=== PATIENT | male | born 1960 | race Caucasian/White ===

== ENCOUNTER 2016-09-28 17:39 | Emergency (ER) | payer BC ==
--- NOTE | 2016-09-28 18:21 | EDM.PDOC ---
ED HPI GENERAL MEDICAL PROBLEM - General Chief Complaint: ENT Problem Stated Complaint: RT EYE ISSUE Time Seen by Provider: 09/28/16 17:54 Source of Information: Reports: Patient History Limitations: Reports: No Limitations - History of Present Illness INITIAL COMMENTS - FREE TEXT/NARRATIVE: The patient was out week waking and he came in the house and had redness to the right eye and burning. He has no vision changes but he noticed some edema of the sclera that was concerning. He does wear glasses but no contacts. Onset: Gradual Duration: Hour(s): Location: Reports: Other (right eye) Quality: Reports: Other (Burning) Severity: Moderate Improves with: Reports: None Worsens with: Reports: None Associated Symptoms: Reports: No Other Symptoms Right Eye Pain Score (Numeric/FACES): 3 - Related Data Allergies Allergy/AdvReac Type Severity Reaction Status Date / Time Penicillins Allergy Other Verified 09/28/16 17:53 Home Meds: Home Meds . [Unable to Verify Home Med List] 09/28/16 [History] Past Medical History Cardiovascular History: Reports: Hypertension Social & Family History - Tobacco Use Smoking Status *Q: Current Every Day Smoker Years of Tobacco use: 25 Packs/Tins Daily: 0.7 - Caffeine Use Caffeine Use: Reports: None - Recreational Drug Use Recreational Drug Use: No ED ROS ENT - Review of Systems Review Of Systems: See Below Constitutional: Reports: No Symptoms HEENT: Reports: Eye Pain Respiratory: Reports: No Symptoms Cardiovascular: Reports: No Symptoms Endocrine: Reports: No Symptoms GI/Abdominal: Reports: No Symptoms : Reports: No Symptoms Musculoskeletal: Reports: No Symptoms ED EXAM, ENT - Physical Exam Exam: See Below Exam Limited By: No Limitations General Appearance: Alert, No Apparent Distress Eye Exam: Right Eye: Conjunctival Injection, Corneal Abrasion, Bilateral Eye: EOMI Ears: Normal External Exam Nose: Normal Inspection Course - Vital Signs Last Recorded V/S: Last Vital Signs Temp 98.7 F 09/28/16 17:51 Pulse 80 09/28/16 17:51 Resp 18 09/28/16 17:51 BP Pulse Ox 96 09/28/16 17:51 - Re-Assessments/Exams Free Text/Narrative Re-Assessment/Exam: 09/28/16 18:19 He has a corneal abrasion. He has some antibiotic drops at home he will be using. Departure - Departure Time of Disposition: 18:20 Disposition: Home, Self-Care 01 Condition: good Clinical Impression: Conjunctival edema of right eye Corneal abrasion, right Qualifiers: Encounter type: initial encounter Qualified Code(s): S05.01XA - Injury of conjunctiva and corneal abrasion without foreign body, right eye, initial encounter - Discharge Information Forms: ED Department Discharge Additional Instructions: Take the antibiotic drops as prescribed by your eye doctor. Follow up with him if you are not better in a few days.
== END 2016-09-28 18:25 | disposition home or self-care (01) ==
LOC: JD.ED 17:39
DX: S05.01XA Injury of conjunctiva and corneal abrasion without foreign body, right eye, initial encounter (principal); H11.421 Conjunctival edema, right eye; I10 Essential (primary) hypertension; F17.210 Nicotine dependence, cigarettes, uncomplicated; Z88.0 Allergy status to penicillin; X58.XXXA Exposure to other specified factors, initial encounter
CPT/HCPCS: 99282; 99283

== ENCOUNTER 2020-03-30 23:31 | Emergency (ER) | payer BC ==
[2020-03-30 23:44] VITALS: PULSE 70
[2020-03-30] MEDS ORDERED: Lactated Ringers 1,000 ML IV SCH (23:45)
--- NOTE | 2020-03-30 23:52 | EDM.PDOC ---
ED HPI GENERAL MEDICAL PROBLEM - General Chief Complaint: Chest Pain Stated Complaint: CHEST PAIN Time Seen by Provider: 03/30/20 23:42 - History of Present Illness INITIAL COMMENTS - FREE TEXT/NARRATIVE: 59-year-old male presents the emergency room with chest pain. Approximately 2 hours prior to arrival the patient developed pretty significant chest discomfort this was substernal in the lower chest and at times into the middle chest. Prior to this the patient was not having any symptoms. The patient does not have any history of coronary artery disease. No family history of coronary artery disease. His mother of cancer he has an older sister with no heart disease his father still living. Patient's risk factors include smoking he smokes about a pack a day. The patient has had episodes similar to this in the past he had a normal stress test about 5 years ago. This chest pain has not been associated with breathing difficulties or nausea and vomiting. The patient does not take baby aspirin daily. Chest Pain Score (Numeric/FACES): 10 - Related Data Allergies Allergy/AdvReac Type Severity Reaction Status Date / Time Penicillins Allergy Other Verified 03/30/20 23:44 Home Meds: Home Meds Hydrocodone/Acetaminophen [Hydrocodone-Acetamin 5-325 mg] 1 - 2 each PO Q6H PRN #20 tablet 03/31/20 [Rx] Omeprazole 40 mg PO DAILY #30 capsule. 03/31/20 [Rx] Sucralfate [Carafate] 1 gm PO ASDIRECTED #28 ml 03/31/20 [Rx] Past Medical History Cardiovascular History: Reports: Hypertension Social & Family History - Caffeine Use Caffeine Use: Reports: None ED ROS GENERAL - Review of Systems Review Of Systems: See Below Constitutional: Reports: No Symptoms HEENT: Reports: No Symptoms Respiratory: Reports: No Symptoms Cardiovascular: Reports: Chest Pain. Denies: Blood Pressure Problem, Claudication, Dyspnea on Exertion, Edema Endocrine: Reports: No Symptoms GI/Abdominal: Reports: Abdominal Pain (Upper abdominal). Denies: Black Stool, Bloody Stool, Constipation, Diarrhea : Reports: No Symptoms Musculoskeletal: Reports: No Symptoms Skin: Reports: No Symptoms Neurological: Reports: No Symptoms Psychiatric: Reports: No Symptoms Hematologic/Lymphatic: Reports: No Symptoms ED EXAM, GENERAL - Physical Exam Exam: See Below Exam Limited By: No Limitations General Appearance: Alert, Moderate Distress (From the discomfort) Head: Atraumatic, Normocephalic Neck: Normal Inspection Respiratory/Chest: No Respiratory Distress, Lungs Clear, Normal Breath Sounds Cardiovascular: Regular Rate, Rhythm, No Edema, No Murmur GI/Abdominal: Normal Bowel Sounds, Soft, Other (Patient has marked epigastric discomfort with palpation especially in the area just below the xiphoid. Less so in the left upper quadrant no right upper quadrant pain he has no rigidity rebound or guarding noted) Extremities: Normal Inspection, No Pedal Edema Neurological: Alert, Oriented, Normal Cognition Psychiatric: Anxious Skin Exam: Warm, Dry, Intact #1 Interpretation EKG Date: 03/30/20 Rhythm: NSR Rate (Beats/Min): 73 [place]: Normal P-Wave: Present QRS: Other (QRS with borderline early transition) ST-T: Normal QT: Normal Comparison: No Change (No significant change other than some lead placement variation in the precordial leads comparing to rest images of the stress test done in 2014) EKG Interpretation Comments: Possible left atrial enlargement otherwise unremarkable Course - Vital Signs Last Recorded V/S: Last Vital Signs Temp 36.4 C 03/30/20 23:41 Pulse 70 03/30/20 23:41 Resp 20 03/30/20 23:41 BP 149/98 H 03/31/20 00:16 Pulse Ox 96 03/30/20 23:41 - Orders/Labs/Meds Orders: Active Orders 24 hr Category Date Time Status EKG Documentation Completion [RC] ASDIRECTED Care 03/31/20 02:53 Active EKG Documentation Completion [RC] STAT Care 03/31/20 00:32 Active Chest 1V Frontal [CR] Stat Exams 03/30/20 23:53 Taken Chest PE [Ang Chest] [CT] Stat Exams 03/31/20 00:51 Taken Lactated Ringers [Ringers, Lactated] 1,000 ml Med 03/30/20 23:45 Active IV ASDIRECTED EKG 12 Lead [EK] Stat Ther 03/31/20 02:53 Ordered Medication Orders Lactated Ringer's (Ringers, Lactated) 1,000 mls @ 50 mls/hr IV ASDIRECTED SHILPI Last Admin: 03/31/20 00:03 Dose: 50 mls/hr Documented by: ANTOINETTE Labs: Laboratory Tests 03/30/20 03/30/20 03/30/20 Range/Units 23:40 23:40 23:40 WBC 14.21 H (4.23-9.07) K/mm3 RBC 5.69 (4.63-6.08) M/mm3 Hgb 17.4 (13.7-17.5) gm/dl Hct 50.7 (40.1-51.0) % MCV 89.1 (79.0-92.2) fl MCH 30.6 (25.7-32.2) pg MCHC 34.3 (32.2-35.5) g/dl RDW Std Deviation 44.0 H (35.1-43.9) fL Plt Count 285 (163-337) K/mm3 MPV 10.8 (9.4-12.3) fl Neut % (Auto) 73.1 H (34.0-67.9) % Lymph % (Auto) 17.9 L (21.8-53.1) % [place] % (Auto) 6.4 (5.3-12.2) % Eos % (Auto) 2.2 (0.8-7.0) Baso % (Auto) 0.1 (0.1-1.2) % Neut # (Auto) 10.11 H (1.78-5.38) K/mm3 Lymph # (Auto) 2.48 (1.32-3.57) K/mm3 [place] # (Auto) 0.89 H (0.30-0.82) K/mm3 Eos # (Auto) 0.31 (0.04-0.54) K/mm3 Baso # (Auto) 0.02 (0.01-0.08) K/mm3 Neutrophils % (Manual) Cancelled Band Neutrophils % Cancelled Lymphocytes % (Manual) Cancelled Atypical Lymphs % Cancelled Immat Monocytes % (Man) Cancelled Monocytes % (Manual) Cancelled Eosinophils % (Manual) Cancelled Basophils % (Manual) Cancelled Metamyelocytes % Cancelled Myelocytes % Cancelled Promyelocytes % Cancelled Blast Cells % Cancelled Plasma Cell % (Manual) Cancelled Immature Gran # Cancelled Absolute Neutrophils Cancelled Absolute Seg Neuts Cancelled Band Neutrophils # Cancelled Lymphocytes # (Manual) Cancelled Monocytes # (Manual) Cancelled Eosinophils # (Manual) Cancelled Basophils # (Manual) Cancelled Absolute Metamyelocyte Cancelled Absolute Myelocytes Cancelled Absolute Promyelocytes Cancelled Absolute Plasma Cells Cancelled Nucleated RBCs Cancelled Differential Comment Cancelled Manual Slide Review Normal smear Hypersegmented Neuts Cancelled Atypical Lymphocytes Cancelled Vacuolated Monocytes Cancelled Absolute Blast Cells Cancelled Toxic Granulation Cancelled Dohle Bodies Cancelled Pelger-Huet Cells Cancelled Megakaryocytic Frags Cancelled Neto Rods Cancelled WBC Morphology Comment Cancelled Platelet Estimate Cancelled Clumped Platelets Cancelled Giant Platelets Cancelled Plt Morphology Comment Cancelled Polychromasia Cancelled Hypochromasia Cancelled Poikilocytosis Cancelled Basophilic Stippling Cancelled Anisocytosis Cancelled Microcytosis Cancelled Macrocytosis Cancelled Spherocytes Cancelled Pappenheimer Bodies Cancelled Sickle Cells Cancelled Target Cells Cancelled Tear Drop Cells Cancelled Ovalocytes Cancelled Stomatocytes Cancelled Helmet Cells Cancelled [place] Bodies Cancelled Edna Rings Cancelled [place] Cells Cancelled Elliptocytes Cancelled Acanthocytes (Spur) Cancelled Rouleaux Cancelled Hemoglobin C Crystals Cancelled Schistocytes Cancelled RBC Morph Comment Cancelled Smear Path Review Cancelled Roberto Bodies Cancelled PT 10.3 (9.7-12.0) SECONDS INR 0.96 APTT 25.8 (21.7-31.4) SECONDS D-Dimer, Quantitative (0.19-0.50) mg/L Sodium 140 (136-145) mEq/L Potassium 3.9 (3.5-5.1) mEq/L Chloride 104 (98-107) mEq/L Carbon Dioxide 29 (21-32) mEq/L Anion Gap 10.9 (5-15) BUN 20 H (7-18) mg/dL Creatinine 1.1 (0.7-1.3) mg/dL Est Cr Clr Drug Dosing 80.34 mL/min Estimated GFR (MDRD) > 60 (>60) mL/min BUN/Creatinine Ratio 18.2 H (14-18) Glucose 111 H (74-106) mg/dL Calcium 9.4 (8.5-10.1) mg/dL Total Bilirubin 1.3 H (0.2-1.0) mg/dL AST 17 (15-37) U/L ALT 54 (16-63) U/L Alkaline Phosphatase 80 (46-116) U/L Troponin I < 0.017 (0.00-0.056) ng/mL Total Protein 7.4 (6.4-8.2) g/dl Albumin 3.9 (3.4-5.0) g/dl Globulin 3.5 gm/dL Albumin/Globulin Ratio 1.1 (1-2) SARS-CoV-2 RNA (MYLENE) (NEGATIVE) Slides for Path Review Cancelled 03/31/20 03/31/20 03/31/20 Range/Units 00:36 00:55 03:05 WBC (4.23-9.07) K/mm3 RBC (4.63-6.08) M/mm3 Hgb (13.7-17.5) gm/dl Hct (40.1-51.0) % MCV (79.0-92.2) fl MCH (25.7-32.2) pg MCHC (32.2-35.5) g/dl RDW Std Deviation (35.1-43.9) fL Plt Count (163-337) K/mm3 MPV (9.4-12.3) fl Neut % (Auto) (34.0-67.9) % Lymph % (Auto) (21.8-53.1) % [place] % (Auto) (5.3-12.2) % Eos % (Auto) (0.8-7.0) Baso % (Auto) (0.1-1.2) % Neut # (Auto) (1.78-5.38) K/mm3 Lymph # (Auto) (1.32-3.57) K/mm3 [place] # (Auto) (0.30-0.82) K/mm3 Eos # (Auto) (0.04-0.54) K/mm3 Baso # (Auto) (0.01-0.08) K/mm3 Neutrophils % (Manual) Band Neutrophils % Lymphocytes % (Manual) Atypical Lymphs % Immat Monocytes % (Man) Monocytes % (Manual) Eosinophils % (Manual) Basophils % (Manual) Metamyelocytes % Myelocytes % Promyelocytes % Blast Cells % Plasma Cell % (Manual) Immature Gran # Absolute Neutrophils Absolute Seg Neuts Band Neutrophils # Lymphocytes # (Manual) Monocytes # (Manual) Eosinophils # (Manual) Basophils # (Manual) Absolute Metamyelocyte Absolute Myelocytes Absolute Promyelocytes Absolute Plasma Cells Nucleated RBCs Differential Comment Manual Slide Review Hypersegmented Neuts Atypical Lymphocytes Vacuolated Monocytes Absolute Blast Cells Toxic Granulation Dohle Bodies Pelger-Huet Cells Megakaryocytic Frags Neto Rods WBC Morphology Comment Platelet Estimate Clumped Platelets Giant Platelets Plt Morphology Comment Polychromasia Hypochromasia Poikilocytosis Basophilic Stippling Anisocytosis Microcytosis Macrocytosis Spherocytes Pappenheimer Bodies Sickle Cells Target Cells Tear Drop Cells Ovalocytes Stomatocytes Helmet Cells Ybar[place] Bodies Edna Rings [place] Cells Elliptocytes Acanthocytes (Spur) Rouleaux Hemoglobin C Crystals Schistocytes RBC Morph Comment Smear Path Review Roberto Bodies PT (9.7-12.0) SECONDS INR APTT (21.7-31.4) SECONDS D-Dimer, Quantitative 0.95 H (0.19-0.50) mg/L Sodium (136-145) mEq/L Potassium (3.5-5.1) mEq/L Chloride (98-107) mEq/L Carbon Dioxide (21-32) mEq/L Anion Gap (5-15) BUN (7-18) mg/dL Creatinine (0.7-1.3) mg/dL Est Cr Clr Drug Dosing mL/min Estimated GFR (MDRD) (>60) mL/min BUN/Creatinine Ratio (14-18) Glucose (74-106) mg/dL Calcium (8.5-10.1) mg/dL Total Bilirubin (0.2-1.0) mg/dL AST (15-37) U/L ALT (16-63) U/L Alkaline Phosphatase (46-116) U/L Troponin I < 0.017 (0.00-0.056) ng/mL Total Protein (6.4-8.2) g/dl Albumin (3.4-5.0) g/dl Globulin gm/dL Albumin/Globulin Ratio (1-2) SARS-CoV-2 RNA (MYLENE) Negative (NEGATIVE) Slides for Path Review Meds: Medications Generic Name Dose Route Start Last Admin Trade Name Freq PRN Reason Stop Dose Admin Lactated Ringer's 1,000 mls @ 50 mls/hr 03/30/20 23:45 03/31/20 00:03 Ringers, Lactated IV 50 mls/hr ASDIRECTED SHILPI Administration Discontinued Medications Generic Name Dose Route Start Last Admin Trade Name Freq PRN Reason Stop Dose Admin Hydrocodone Bitart/Acetaminophen 1 tab 03/31/20 03:53 [place] 325-5 Mg PO 03/31/20 03:54 ONETIME ONE Aspirin 324 mg 03/30/20 23:54 03/31/20 00:02 Aspirin PO 03/30/20 23:55 324 mg ONETIME ONE Administration Al Hydroxide/Mg Hydroxide 30 0 ml 03/31/20 00:46 03/31/20 01:06 ml/ Lidocaine HCl 15 ml PO 03/31/20 00:47 45 ml ONETIME ONE Administration Morphine Sulfate 2 mg 03/31/20 00:17 03/31/20 02:25 Morphine IVPUSH 03/31/20 00:18 Not Given ONETIME ONE Nitroglycerin 0.4 mg 03/30/20 23:54 03/31/20 00:16 Nitrostat SL 0.4 mg Q5M PRN Administration Chest Pain Nitroglycerin 1 gm 03/31/20 00:31 03/31/20 00:36 Nitro-Bid 2% TOP 03/31/20 00:32 1 gm ONETIME ONE Administration Pantoprazole Sodium 40 mg 03/31/20 02:07 03/31/20 02:21 Protonix Iv IVPUSH 03/31/20 02:08 40 mg ONETIME ONE Administration Sucralfate 1 gm 03/31/20 01:38 03/31/20 01:48 Carafate PO 03/31/20 01:39 1 gm ONETIME ONE Administration - Re-Assessments/Exams Free Text/Narrative Re-Assessment/Exam: 03/31/20 02:58 She had quite a bit of discomfort when he came in this responded moderately to nitroglycerin. He had his biggest response to a GI cocktail. With near complete resolution of his symptoms at this point his pain is about 70% better after receiving the initial GI cocktail and he did get a gram of Carafate also early on with the nitro the patient did receive 2 mg of morphine. After the improvement with the nitro he was given an inch of topical nitro. This was removed after he had improvement with a GI cocktail. At this point are waiting on his second troponin he is received 40 mg of Protonix. 03/31/20 03:59 Patient continues to do well a second troponin was negative. At this point the patient like to be discharged home we will discharge him on a prescription for Protonix 1 daily and Carafate 4 times a day for a week and will give him a few [place]. Departure - Departure Time of Disposition: 04:00 Disposition: Home, Self-Care 01 Clinical Impression: Chest pain, Chest pain due to CAD, Dyspepsia Referrals: Lauri Dasilva MD [Primary Care Provider] - Forms: ED Department Discharge Additional Instructions: Return to the emergency room with any questions problems or worsening symptoms. You have been started on 4 medications the first 1 is Protonix take this 60 minutes before your morning meal. The second is Carafate you will take this 4 times a day for 7 days. It is best taken immediately before your morning noon and evening meals and again at bedtime. Take your other medications at least an hour before taking this or 2 hours after taking this. The third medication is hydrocodone/acetaminophen. This is a pain combination. Take 1 or 2 every 6 hours only if needed for pain. If using this on a regular basis it can cause constipation take something to prevent constipation. Also allow yourself 12 hours after using this medication before driving or returning to work. Start a baby aspirin 1 daily preferably enteric-coated. Follow-up with your regular physician this next week for recheck. Discuss if you need another stress test for your heart to be absolutely certain this is not causing your symptoms. Do not use ibuprofen or naproxen or any medications like this. Sepsis Event Note (ED) - Focused Exam Vital Signs: Vital Signs Temp Pulse Resp BP BP Pulse Ox 03/31/20 00:16 149/98 H 03/31/20 00:09 163/96 H 03/31/20 00:03 180/104 H 03/30/20 23:41 36.4 C 70 20 178/101 H 96 - My Orders Last 24 Hours: My Active Orders 03/30/20 23:45 Lactated Ringers [Ringers, Lactated] 1,000 ml IV ASDIRECTED 03/30/20 23:53 Chest 1V Frontal [CR] Stat 03/31/20 00:32 EKG Documentation Completion [RC] STAT 03/31/20 00:51 Chest PE [Ang Chest] [CT] Stat 03/31/20 02:53 EKG Documentation Completion [RC] ASDIRECTED EKG 12 Lead [EK] Stat - Assessment/Plan Last 24 Hours: My Active Orders 03/30/20 23:45 Lactated Ringers [Ringers, Lactated] 1,000 ml IV ASDIRECTED 03/30/20 23:53 Chest 1V Frontal [CR] Stat 03/31/20 00:32 EKG Documentation Completion [RC] STAT 03/31/20 00:51 Chest PE [Ang Chest] [CT] Stat 03/31/20 02:53 EKG Documentation Completion [RC] ASDIRECTED EKG 12 Lead [EK] Stat
[2020-03-30] MEDS ORDERED: Aspirin 81 MG Tab.Chew PO ONE (23:54)
[2020-03-31] MEDS: Nitroglycerin 0.4 MG Tab.SL SL PRN ×3 (00:03→00:16)
[2020-03-31] MEDS ORDERED: Morphine 2 MG/ML SYRINGE IVPUSH ONE (00:17)
[2020-03-31] MEDS ORDERED: Nitroglycerin 2% Oint 1 GM UD Packet TOP ONE (00:31)
[2020-03-31] MEDS ORDERED: Alum Hydrox/Mag Hydrox/Simeth 30 ML, Lidocaine 2% 15 ML PO ONE ×2 (00:46)
[2020-03-31] MEDS ORDERED: Sucralfate 1 GM Tab PO ONE (01:38)
[2020-03-31] MEDS ORDERED: Pantoprazole 40 MG Vial IVPUSH ONE (02:07)
[2020-03-31] MEDS ORDERED: Acetaminophen/HYDROcodone 325-5 MG Tab PO ONE (03:53)
[2020-03-31 04:07] VITALS: BP 144/93
--- NOTE | 2020-03-31 08:50 | CT ---
CT chest Technique: Multiple axial sections through the chest were obtained. Intravenous contrast was utilized. Study has been performed as a pulmonary angiogram protocol. Findings Pulmonary arteries: Pulmonary arteries are fairly well opacified. No filling defects are seen to indicate pulmonary embolism. Heart and mediastinum: Aorta shows no aneurysm. Mediastinum shows no significant adenopathy. Heart is within normal limits. Very minimal coronary artery calcification is seen. Esophageal wall shows some wall thickening distally raising the possibility of reflux esophagitis. Lungs: Pulmonary nodule is noted within the right middle lobe. This shows no evidence of abnormal calcifications. This pulmonary nodule measures approximately 6 mm in size. No acute parenchymal change is appreciated. A second nodule is seen within the right lower lung which shows evidence of calcification and most likely is due to an incidental granuloma. Lungs otherwise are clear. Osseous: Mild degenerative change is noted within the spine. No acute osseous finding is appreciated. Upper abdominal structures: Visualized upper abdominal structures showed nothing acute. Impression: 1. No findings of pulmonary embolism. 2. Nodule within the right middle lobe. Recommend repeat noncontrast chest CT study between 6 and 12 months, additional recommendations will be given after this is performed. 3. Findings suggestive of reflux esophagitis. 4. No other acute abnormality is appreciated. Diagnostic code #9 I agree with preliminary report from [facility], finalized on 03/31/20, 3:05 AM Central Standard Time
--- NOTE | 2020-03-31 08:55 | CR ---
Chest: Portable view of the chest was obtained. Comparison: No prior chest imaging is available. Findings: Heart and mediastinum: Heart size and mediastinum are normal. No mediastinal mass is seen. Lungs: Lungs are clear with no acute parenchymal change. Osseous: Bony structures show nothing acute. Impression: 1. Nothing acute is identified on portable chest x-ray. Diagnostic code #1
== END 2020-03-31 04:17 | disposition home or self-care (01) ==
LOC: JD.ED 23:31
DX: I25.10 Atherosclerotic heart disease of native coronary artery without angina pectoris (principal); R10.13 Epigastric pain; I10 Essential (primary) hypertension; Z79.899 Other long term (current) drug therapy; Z88.0 Allergy status to penicillin; Z20.828 Contact with and (suspected) exposure to other viral communicable diseases
CPT/HCPCS: 36415; 71045; 71045-26; 71275; 71275-26; 80053; 84484; 85025; 85379; 85610; 85730; 93005; 93010; 96374; 99284; 99285-25; A9270-GY; C9113; J7120; U0002

== ENCOUNTER 2024-12-02 10:30 | Emergency (ER) | payer BC ==
[2024-12-02 10:46] VITALS: PULSE 71
[2024-12-02] MEDS: Ketorolac 60 MG/2 ML SDV IM ONE (11:14)
[2024-12-02 13:10] VITALS: BP 162/88
== END 2024-12-02 13:16 | disposition home or self-care (01) ==
LOC: JD.ED 10:30
DX: M54.42 Lumbago with sciatica, left side (principal); E78.00 Pure hypercholesterolemia, unspecified; I10 Essential (primary) hypertension; Z88.0 Allergy status to penicillin; Z79.899 Other long term (current) drug therapy
CPT/HCPCS: 72100; 73502; 96372; 99284; A9270; J1885; J1171